=== PATIENT | female | born 1980 | race Two or more races ===

== ENCOUNTER 2018-12-14 16:04 | Emergency (ER) | payer OTHER ==
[~2018-12-14] VITALS: Ht 170.2 cm; Wt 112.5 kg
[2018-12-14] MEDS ORDERED: ZOLOFT25 MG (16:39)
== END 2018-12-14 20:44 | disposition home or self-care (01) ==
LOC: ER 16:04
DX: S61.421A Laceration with foreign body of right hand, initial encounter (principal); W45.8XXA Other foreign body or object entering through skin, initial encounter; Y93.89 Activity, other specified; Y92.481 Parking lot as the place of occurrence of the external cause; Y99.8 Other external cause status